=== PATIENT | male | born 1955 | race Caucasian/White ===

== ENCOUNTER 2016-09-30 13:13 | Emergency (ER) | payer SELFPAY ==
[~2016-09-30] VITALS: Wt 77.3 kg
[~2016-09-30 13:13] MED LIST: ADALAT; LOSARTAN
== END 2016-09-30 15:41 | disposition left against medical advice (07) ==
LOC: E/R 13:13
DX: Z53.21 Procedure and treatment not carried out due to patient leaving prior to being seen by health care provider (principal)